=== PATIENT | female | born 1955 | race Caucasian/White ===

== ENCOUNTER 2018-01-18 12:14 | Emergency (ER) | payer BC ==
[2018-01-18 15:33] LABS: ABSOLUTE LYMPHOCYTES (AUTO) 1.1 10^3/uL (0.5-4.7); ABSOLUTE MONOCYTES (AUTO) 0.9 10^3/uL (0.1-1.4); ABSOLUTE NEUT (AUTO) 12.6 10^3/uL (1.7-8.2); BASOPHILS % (AUTO) 0.2 % (0-2); HEMOGLOBIN 15.1 g/dL (12.0-15.5); INTERNATIONAL RATION (INR) 4.86; LYMPHOCYTES % (AUTO) 7.6 % (13-45); MEAN CORPUSCULAR HEMOGLOBIN 30.8 pg (27.0-33.4); MEAN CORPUSCULAR HGB CONC 34.3 g/dL (32.0-36.0); MEAN CORPUSCULAR VOLUME 90 fl (80-97); MONOCYTES % (AUTO) 6.4 % (3-13); PLATELET COUNT 359 10^3/uL (150-450); PROTHROMBIN TIME 47.6 SEC (11.4-15.4); RED BLOOD COUNT 4.89 10^6/uL (3.72-5.28); RED CELL DISTRIBUTION WIDTH 14.3 % (11.5-14.0); SEGMENTED NEUTROPHILS % (AUTO) 85.8 % (42-78); TOTAL CELLS COUNTED % (AUTO) 100 %; WHITE BLOOD COUNT 14.7 10^3/uL (4.0-10.5)
--- NOTE | 2018-01-18 16:13 | ER Document Report ---
ED General - General Chief Complaint: Abnormal Lab Results Stated Complaint: ABNORMAL LABS Time Seen by Provider: 01/18/18 15:13 Notes: Patient is here because she has been told that her pro time is high and needs to be treated. Patient is on Coumadin because she has an inherited clotting disorder known as MTHFR. 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 She has been taking 8 mg a day of warfarin. Her last Coumadin dose that she is taken was on Monday, 2 days ago and her lab result is from yesterday drawing of blood and her PT/INR was 13. Patient believes that her elevated PT/INR is secondary to her taking prednisone for the past couple of weeks due to a chronic cough and the inability to stop the cough in any other way. She is scheduled to taper her prednisone down with weekly decreases in dosage for the next couple of weeks. Patient did have a spontaneous nosebleed here in our waiting room but it has resolved now. Patient is not running any fever. TRAVEL OUTSIDE OF THE [place] IN LAST 30 DAYS: No - Related Data Allergies/Adverse Reactions: Cephalosporins Allergy (Verified 01/18/18 12:26) codeine Allergy (Verified 01/18/18 12:26) Past Medical History - Social History Smoking Status: Never Smoker Chew tobacco use (# tins/day): No Frequency of alcohol use: None Drug Abuse: None Family History: Reviewed & Not Pertinent Patient has suicidal ideation: No Patient has homicidal ideation: No - Medical History Medical History: Other - Inherited clotting disorder MTHFR - Past Medical History Cardiac Medical History: Reports: Hx Hypercholesterolemia Neurological Medical History: Reports: Hx Migraine Past Surgical History: Reports: Hx Appendectomy - 1978, Hx Section - 1981, Hx Hysterectomy, Hx Tonsillectomy - 1997 Review of Systems - Review of Systems Notes: CONSTITUTIONAL : Denies fever. CARDIOVASCULAR: Denies chest pain. RESPIRATORY: Has had chronic cough for several weeks. See HPI. Denies shortness of breath. GASTROINTESTINAL: Denies abdominal pain or nausea, vomiting, or diarrhea. GENITOURINARY: Denies difficulty or painful urinating, urinary frequency, blood in urine. Physical Exam - Vital signs Vitals: Temp Pulse Resp BP Pulse Ox 98.3 F 119 H 18 114/64 95 01/18/18 12:30 01/18/18 12:30 01/18/18 12:30 01/18/18 12:30 01/18/18 12:30 Interpretation: Normal, Tachycardic - Mild Notes: PHYSICAL EXAMINATION: GENERAL: Well-appearing, no acute distress. HEAD: Atraumatic, normocephalic. No bleeding from her nose now. NECK: Normal range of motion, supple. LUNGS: Breath sounds clear and equal bilaterally. HEART: Regular rate and rhythm without murmurs heard. ABDOMEN: Soft, nontender. No guarding or rebound or masses felt. Skin: A few bruises noted, right arm, etc. Course - Re-evaluation Re-evalutation: 01/18/18 18:59 Patient's INR was 4.86. No need for any reversal of her warfarin anticoagulation. Recommended the patient take a half of her usual dose at bedtime tonight, when she usually takes her medicines. Then resume taking her Coumadin normally tomorrow. Stressed to her the importance of following up with her primary care provider to manage this issue since the patient is apparently planning on continuing with the prednisone. I have encouraged her to stop the prednisone, but if she is unable to stop, at least taper it more quickly than planned. - Vital Signs Vital signs: Temp Pulse Resp BP Pulse Ox 98.5 F 98 16 102/67 97 01/18/18 17:00 01/18/18 17:00 01/18/18 17:00 01/18/18 17:00 01/18/18 17:00 - Laboratory Result Diagrams: 01/18/18 14:44 Laboratory results interpreted by me: 01/18/18 01/18/18 14:44 14:44 WBC 14.7 H RDW 14.3 H Seg Neutrophils % 85.8 H Lymphocytes % 7.6 L Absolute Neutrophils 12.6 H PT 47.6 H Discharge - Discharge Clinical Impression: Coagulopathy, Excessive anticoagulation Condition: Stable Disposition: HOME, SELF-CARE Additional Instructions: Your blood was overly anticoagulated in the past couple of days. However, your corrected the problem and your PT/INR is almost back in therapeutic range. I would recommend resuming your Coumadin tonight, taking half of your normal dose. Then resume your Coumadin as before starting tomorrow night. Follow-up with your primary care provider so that they can repeat your ProTime in 2 or 3 days so they can adjust your dosage of Coumadin as well as her prednisone that you are taking for your cough. We would like to have the offer your prednisone as soon as possible. FOLLOW-UP CARE: If you have been referred to a physician for follow-up care, call the physician s office for an appointment as you were instructed or within the next two days. If you experience worsening or a significant change in your symptoms, notify the physician immediately or return to the Emergency Department at any time for re-evaluation.
[2018-01-18 17:25] VITALS: BP 102/67
== END 2018-01-18 17:27 | disposition home or self-care (01) ==
LOC: ER 12:14
DX: D68.9 Coagulation defect, unspecified (principal); E78.00 Pure hypercholesterolemia, unspecified; Z79.02 Long term (current) use of antithrombotics/antiplatelets; Z90.710 Acquired absence of both cervix and uterus; Z88.6 Allergy status to analgesic agent
CPT/HCPCS: 36415; 85025; 85610; 99283